=== PATIENT | male | born 1965 | race Caucasian/White ===

== ENCOUNTER 2019-03-07 10:34 | Day surgery (SDC) | payer BC ==
[2019-03-06 09:40] VITALS: BMI 25.7
[~2019-03-07 10:34] MED LIST: LACTATED RINGERS 1,000 ML IV SCH
[2019-03-07 10:53] VITALS: RESP 16; TEMP 98.7
[2019-03-07] MEDS ORDERED: LIDOCAINE 1% 20 ML VIAL (10MG/ML) FOR IV START INTRADERMA ONE (11:00)
[2019-03-07] MEDS ORDERED: PROPOFOL 10 MG/ML 20 ML VIAL IV ONE (11:39)
--- NOTE | 2019-03-07 12:00 | P.PCN ---
Date of Procedure: 03/07/19 Procedure(s) Performed: BRIEF HISTORY: Patient is a 53-year-old pleasant white male scheduled for an elective colonoscopy as a part of screening for colorectal neoplasia. PROCEDURE PERFORMED: Colonoscopy snare polypectomy. PREOPERATIVE DIAGNOSIS: Screening for colon cancer. IV sedation per Anesthesia. PROCEDURE: After informed consent was obtained, the patient, was brought into the endoscopy unit. IV sedation was administered by Anesthesia under continuous monitoring. Digital rectal examination was normal. Initially the Olympus CF-160 flexible video colonoscope was then inserted in the rectum, gradually advanced into the cecum without any difficulty. Careful examination was performed as the scope was gradually being withdrawn. Ileocecal valve and the appendiceal orifice were visualized and appeared normal. Prep was excellent. Mucosa of the cecum, ascending colon, transverse colon, descending colon, appeared normal. In the rectosigmoid colon there was a 5 mm polyp that was removed by snare polypectomy. In the distal rectum there was another 5 mm polyp that was removed by snare polypectomy. Rest of the sigmoid colon, and rectum appeared normal. Retroflexion was performed in the rectum and no lesions were seen. The patient tolerated the procedure well. IMPRESSION: 5 mm proximal rectosigmoid polyp status post snare polypectomy 5 mm distal rectal polyp status post polypectomy RECOMMENDATIONS: Findings of this examination were discussed with the patient as well as his family. He was advised to follow with the biopsy results. If the biopsy shows an adenoma he can have a repeat colonoscopy in 5 years.
[2019-03-07 12:46] VITALS: BP 121/76; PULSE 66
== END 2019-03-07 12:45 | disposition home or self-care (01) ==
LOC: ORWHC2ENDO 10:34
PROVIDERS: ATTEND Internal Medicine Gastroenterology
DX: Z12.11 Encounter for screening for malignant neoplasm of colon (principal); K62.1 Rectal polyp; K63.5 Polyp of colon
CPT/HCPCS: 88305; 45385; J2704